=== PATIENT | male | born 1955 | race Caucasian/White ===

== ENCOUNTER 2020-09-18 19:56 | Emergency (ER) | payer MEDICARE | END 2020-09-18 22:07 | disposition left against medical advice (07) | LOC: ERS 19:56 | DX: Z53.21 Procedure and treatment not carried out due to patient leaving prior to being seen by health care provider (principal) ==

== ENCOUNTER 2021-12-02 18:25 | Emergency (ER) | payer OTHER | END 2021-12-02 20:44 | disposition home or self-care (01) | LOC: ERS 18:25 | DX: I82.611 Acute embolism and thrombosis of superficial veins of right upper extremity (principal); L03.113 Cellulitis of right upper limb; R19.7 Diarrhea, unspecified; I10 Essential (primary) hypertension; J44.9 Chronic obstructive pulmonary disease, unspecified; F17.210 Nicotine dependence, cigarettes, uncomplicated ==

== ENCOUNTER 2022-03-31 08:17 | Inpatient (IN) | payer MEDICARE, OTHER ==
[2022-03-31 08:50] LABS: Mean Corpuscular HGB CONC 32.6 g/dL (32.0-36.0); Mean Platelet Volume 7.5 fL (7.4-10.4); Platelet Count 227 thou/uL (130-400); RBC Distribution Width 11.8 % (11.5-14.5); Red Blood Cell (RBC) Count 5.16 mill/uL (4.70-6.10); White Blood Cell (WBC) Count 7.2 thou/uL (4.8-10.8)
[2022-03-31 08:59] LABS: INR-International Normal Ratio 0.9; PTT 25.3 sec (22.9-36.1); Prothrombin Time 12.1 sec (12.0-14.7)
[2022-03-31 09:05] LABS: ALT (SGPT) 18 U/L (8-55); AST (SGOT) 17 U/L (5-34); Albumin 4.6 g/dL (3.4-4.8); Alkaline Phosphatase 62 U/L (40-110); Anion Gap 16 mmol/L (10-20); BUN (Urea Nitrogen) 10 mg/dL (8.4-25.7); Bilirubin, Total 0.8 mg/dL (0.2-1.2); Calc. Creatinine Clearance 0 mL/min (70-130); Calcium 10.1 mg/dL (7.8-10.44); Carbon Dioxide 24 mmol/L (23-31); Chloride 102 mmol/L (98-107); Estimated GFR 92; Globulin 2.9 g/dL (2.4-3.5); Glucose 110 mg/dL (80-115); Potassium 4.1 mmol/L (3.5-5.1); Protein, Total 7.5 g/dL (5.8-8.1); Sodium 138 mmol/L (136-145)
[2022-03-31 09:16] LABS: Band 4 % (5-11); Eosinophils 1 % (0-10); Lymphocytes 26 % (21-51); MDiff Complete? YES; Monocytes 1 % (0-10); Neutrophil 65 % (42-75); Platelet Morphology Comment Appears Adequate; RBC Morphology Normal; Reactive Lymphocytes 3 % (0-10)
[2022-03-31 09:25] LABS: Bilirubin Negative (Negative); Blood, Urine Negative (Negative); Clarity Clear (Clear); Glucose, Urine (Dipstick) Normal (Negative); Ketone, Urine Negative (Negative); Leukocyte Negative Leu/uL (Negative); Nitrite Negative (Negative); Protein, Urine (Dipstick) Negative (Neg-Trace); Specific Gravity, Urine 1.012 (1.002-1.036); Urobilinogen Normal mg/dL (Less than 2)
[2022-03-31 09:33] LABS: Amphetamine Not Detected (NotDetected); Barbiturates Screen Not Detected (NotDetected); Benzodiazepine Screen Not Detected (NotDetected); Cocaine Metabolite Screen Not Detected (NotDetected); Methadone Not Detected (NotDetected); Methamphetamine Not Detected (NotDetected); Opiate Screen Detected (NotDetected); Oxycodone Screen Not Detected (NotDetected); Phencyclidine (PCP) Not Detected (NotDetected); THC/Cannabinoid Screen Not Detected (NotDetected); Tricyclic Screen Not Detected (NotDetected)
[2022-03-31] MEDS ORDERED: Aspirin Chewable 81 MG TAB ONE (11:02)
[2022-03-31] MEDS ORDERED: Ondansetron PF 4 MG/2 ML Vial IVP PRN (11:22)
[2022-03-31 12:01] LABS: INR-International Normal Ratio 0.9; Prothrombin Time 12.5 sec (12.0-14.7)
[2022-03-31] MEDS ORDERED: Enoxaparin Sodium 40 MG/0.4 ML SYRINGE SC SCH (12:30)
[2022-03-31] MEDS ORDERED: HYDROcodone/Acetaminophen 5/325 mg Tablet ONE (13:00)
[2022-03-31] MEDS ORDERED: Enoxaparin Sodium 40 MG/0.4 ML SYRINGE ONE (13:00)
[2022-03-31 13:19] LABS: SARS-CoV-2 NAA Rapid Test Not Detected (NotDetected)
[2022-03-31] MEDS ORDERED: Iopamidol 370 76% 50 ML VIAL FS ONE (13:53)
[2022-03-31] MEDS: Atorvastatin Calcium 40 MG TAB PO SCH (20:07)
[2022-04-01 07:17] LABS: Cardiac Risk 3.2 (Less than 4.5)
[2022-04-01] MEDS: Aspirin 81 mg Enteric Coated Tablet PO SCH ×2 (08:12→13:57)
[2022-04-01] MEDS ORDERED: Enoxaparin Sodium 40 MG/0.4 ML SYRINGE ONE (09:18)
[2022-04-01] MEDS: Enoxaparin Sodium 40 MG/0.4 ML SYRINGE SC SCH (09:22)
[2022-04-01] MEDS ORDERED: HYDROmorphone 0.5 MG/0.5 ML SYRINGE SLOW IVP SCH ×2 (10:30→15:15)
[2022-04-01] MEDS ORDERED: HYDROmorphone 0.5 MG/0.5 ML SYRINGE ONE (11:22)
[2022-04-01 13:02] VITALS: BMI 23.1
[2022-04-01] MEDS: Acetaminophen 325 MG TAB PO PRN ×2 (13:57→21:15)
[2022-04-01] MEDS ORDERED: Iopamidol 370 76% 50 ML VIAL FS ONE (14:24)
[2022-04-01] MEDS ORDERED: FLU VACC QS2022-23(65YR UP)/PF 240 MCG/0.7 ML SYRINGE IM ONE (14:45)
[2022-04-01] MEDS: Acetaminophen/Codeine 30-300mg Tablet PO PRN (17:14)
[2022-04-01] MEDS: Atorvastatin Calcium 40 MG TAB PO SCH (21:03)
[2022-04-02] MEDS: Acetaminophen/Codeine 30-300mg Tablet PO PRN ×4 (00:14→21:26)
[2022-04-02 05:34] LABS: Hemoglobin A1c 5.5 % (4.0-6.0)
[2022-04-02 05:49] LABS: Anion Gap 15 mmol/L (10-20); BUN (Urea Nitrogen) 13 mg/dL (8.4-25.7); Calc. Creatinine Clearance 92 mL/min (70-130); Calcium 9.3 mg/dL (7.8-10.44); Carbon Dioxide 23 mmol/L (23-31); Chloride 100 mmol/L (98-107); Cholesterol 177 mg/dl (< 200 Desired); Estimated GFR 96; Glucose 133 mg/dL (80-115); HDL Cholesterol 59 mg/dL (>60 Neg Risk); LDL Cholesterol, Calculated 104 mg/dL; Magnesium 1.7 mg/dL (1.6-2.6); Potassium 3.8 mmol/L (3.5-5.1); Sodium 134 mmol/L (136-145); Triglycerides 68 mg/dL (Less than 150)
[2022-04-02] MEDS: Aspirin 81 mg Enteric Coated Tablet PO SCH (08:49)
[2022-04-02] MEDS: Enoxaparin Sodium 40 MG/0.4 ML SYRINGE SC SCH (08:50)
[2022-04-02] MEDS: Acetaminophen 325 MG TAB PO PRN ×2 (12:46→20:02)
[2022-04-02] MEDS: Atorvastatin Calcium 40 MG TAB PO SCH (20:03)
[2022-04-03] MEDS: Acetaminophen/Codeine 30-300mg Tablet PO PRN ×2 (03:38→11:30)
[2022-04-03] MEDS: Aspirin 81 mg Enteric Coated Tablet PO SCH (08:29)
[2022-04-03] MEDS: Enoxaparin Sodium 40 MG/0.4 ML SYRINGE SC SCH (08:29)
[2022-04-03] MEDS: Acetaminophen 325 MG TAB PO PRN ×3 (15:41→23:17)
[2022-04-03] MEDS: HYDROcodone/Acetaminophen 10/325 mg Tablet PO PRN ×2 (17:23→21:12)
[2022-04-03] MEDS: Atorvastatin Calcium 40 MG TAB PO SCH (19:53)
[2022-04-04] MEDS: HYDROcodone/Acetaminophen 10/325 mg Tablet PO PRN ×5 (00:42→22:11)
[2022-04-04] MEDS: Acetaminophen 325 MG TAB PO PRN ×4 (02:46→20:00)
[2022-04-04] MEDS: Enoxaparin Sodium 40 MG/0.4 ML SYRINGE SC SCH (08:18)
[2022-04-04] MEDS: Aspirin 81 mg Enteric Coated Tablet PO SCH (08:18)
[2022-04-04] MEDS: Atorvastatin Calcium 40 MG TAB PO SCH (20:00)
[2022-04-05] MEDS: Acetaminophen 325 MG TAB PO PRN ×2 (00:13→08:10)
[2022-04-05] MEDS: HYDROcodone/Acetaminophen 10/325 mg Tablet PO PRN ×4 (06:58→20:00)
[2022-04-05] MEDS: Enoxaparin Sodium 40 MG/0.4 ML SYRINGE SC SCH (08:10)
[2022-04-05] MEDS: Aspirin 81 mg Enteric Coated Tablet PO SCH (08:11)
[2022-04-05] MEDS: AMOXicillin 250 MG CAP PO SCH ×2 (15:31→20:02)
[2022-04-05] MEDS: Atorvastatin Calcium 40 MG TAB PO SCH (20:00)
[2022-04-06] MEDS: HYDROcodone/Acetaminophen 10/325 mg Tablet PO PRN ×5 (00:59→20:23)
[2022-04-06] MEDS ORDERED: hydrALAZINE 20 MG/ML VIAL SLOW IVP SCH (01:30)
[2022-04-06] MEDS: Enoxaparin Sodium 40 MG/0.4 ML SYRINGE SC SCH (08:38)
[2022-04-06] MEDS: Aspirin 81 mg Enteric Coated Tablet PO SCH (08:38)
[2022-04-06] MEDS: AMOXicillin 250 MG CAP PO SCH ×3 (08:41→20:19)
[2022-04-06] MEDS: Acetaminophen 325 MG TAB PO PRN ×2 (08:44→15:27)
[2022-04-06] MEDS: Atorvastatin Calcium 40 MG TAB PO SCH (20:19)
[2022-04-06 20:29] VITALS: BP 151/97; TEMP 97.5
== END 2022-04-06 22:30 | DRG 64 ==
LOC: ERS 08:17 → ERHOLD 12:10 → NEURO 04-01 12:52
PROVIDERS: ADMIT Internal Medicine; ATTEND Internal Medicine
DX: I63.49 Cerebral infarction due to embolism of other cerebral artery (principal); K85.20 Alcohol induced acute pancreatitis without necrosis or infection; E87.1 Hypo-osmolality and hyponatremia; J44.9 Chronic obstructive pulmonary disease, unspecified; I10 Essential (primary) hypertension; F17.210 Nicotine dependence, cigarettes, uncomplicated; F10.20 Alcohol dependence, uncomplicated; G83.24 Monoplegia of upper limb affecting left nondominant side; K04.7 Periapical abscess without sinus; R91.8 Other nonspecific abnormal finding of lung field; R59.0 Localized enlarged lymph nodes; R10.30 Lower abdominal pain, unspecified; I65.23 Occlusion and stenosis of bilateral carotid arteries; Z20.822 Contact with and (suspected) exposure to COVID-19
CPT/HCPCS: 36415; 70450; 70498; 70551; 71260; 80048; 80053; 80061; 80306; 81003; 83036; 83735; 84484; 85025; 85610; 85730; 87811; 90471; 90662; 90732; 93005; 93306; 94640; G0008; G0009; J1170; J1650; J7620; Q9967; U0002

== ENCOUNTER 2022-07-24 16:09 | Emergency (ER) | payer OTHER ==
[2022-07-24] MEDS ORDERED: Acetaminophen 500 MG TAB ONE (17:05)
[2022-07-24] MEDS ORDERED: Ketorolac Tromethamine 30 MG/ML VIAL ONE (17:05)
[2022-07-24] MEDS ORDERED: HYDROcodone/Acetaminophen 10/325 mg Tablet ONE (17:14)
== END 2022-07-24 17:07 | disposition home or self-care (01) ==
LOC: ERS 16:09
DX: M54.2 Cervicalgia (principal); R20.0 Anesthesia of skin; I10 Essential (primary) hypertension; J44.9 Chronic obstructive pulmonary disease, unspecified; F17.210 Nicotine dependence, cigarettes, uncomplicated; Z79.899 Other long term (current) drug therapy
CPT/HCPCS: 93005; 96374; J1885

== ENCOUNTER 2022-12-23 12:40 | Outpatient (CLI) | payer OTHER, MEDICARE | END 2022-12-23 12:41 | disposition home or self-care (01) | PROVIDERS: ATTEND Psychiatry & Neurology Neurology | DX: I63.9 Cerebral infarction, unspecified (principal) | CPT/HCPCS: 93225; 93226 ==

== ENCOUNTER 2024-07-07 13:21 | Observation (INO) | payer OTHER ==
[2024-07-07 16:36] VITALS: BMI 23.7
[2024-07-07] MEDS ORDERED: Senokot S 8.6-50 MG TAB PO PRN (16:45)
[2024-07-07] MEDS ORDERED: Ondansetron ODT 4 MG TAB PO PRN (16:45)
[2024-07-07] MEDS ORDERED: Ondansetron PF 4 MG/2 ML Vial IVP PRN (16:45)
[2024-07-07] MEDS ORDERED: Dextrose 50% Abboject 50 ML SYRINGE SLOW IVP PRN (16:46)
[2024-07-07] MEDS ORDERED: Glucagon 1 MG/ML KIT IM PRN (16:46)
[2024-07-07] MEDS ORDERED: Dextrose 5% in Water 1,000 ML IV PRN (16:46)
[2024-07-07] MEDS ORDERED: hydrALAZINE 20 MG/ML VIAL SLOW IVP PRN (16:48)
[2024-07-07] MEDS ORDERED: Ibuprofen 200 MG TAB PO PRN (17:19)
[2024-07-07] MEDS: Insulin Lispro 100 UNIT/ML 10 ML VIAL SC PRN (18:21)
[2024-07-07] MEDS: Insulin Glargine 30 UNITS/0.3 ML VIAL SC SCH (20:20)
[2024-07-07] MEDS: Atorvastatin Calcium 40 MG TAB PO SCH (20:20)
[2024-07-07] MEDS: Gabapentin 300 MG CAP PO SCH (20:21)
[2024-07-08 03:56] LABS: #Basophils 0.03 10x3/uL (0.0-0.2); %Basophils 0.4 % (0.0-1.0); %Eosinophils 1.9 % (0.0-10.0); %Lymphocytes 30.4 % (21.0-51.0); %Monocytes 8.4 % (0.0-10.0); %Neutrophils 57.9 % (42.0-75.0); Hematocrit 35.7 % (42.0-52.0); Hemoglobin 11.9 g/dL (14.0-18.0); Mean Corpuscular HGB CONC 33.3 g/dL (32.0-36.0); Mean Corpuscular Hemoglobin 29.1 pg (27.0-31.0); Mean Corpuscular Volume 87.3 fL (78.0-98.0); Mean Platelet Volume 10.3 fL (7.4-10.4); Platelet Count 289 10x3/uL (130-400); RBC Distribution Width 11.9 % (11.5-14.5); Red Blood Cell (RBC) Count 4.09 mill/uL (4.70-6.10)
[2024-07-08 04:32] LABS: Anion Gap 12 mmol/L (10-20); BUN (Urea Nitrogen) 11 mg/dL (8.4-25.7); Calc. Creatinine Clearance 123 mL/min (70-130); Calcium 8.5 mg/dL (7.8-10.44); Carbon Dioxide 27 mmol/L (23-31); Cardiac Risk 3.3 (Less than 4.5); Chloride 102 mmol/L (98-107); Cholesterol 106 mg/dl (< 200 Desired); Estimated GFR 103; Glucose 194 mg/dL (80-115); HDL Cholesterol 32 mg/dL (>60 Neg Risk); LDL Cholesterol, Calculated 52 mg/dL; Potassium 3.2 mmol/L (3.5-5.1); Sodium 138 mmol/L (136-145); Triglycerides 108 mg/dL (Less than 150)
[2024-07-08] MEDS: Ipratropium/Albuterol 3 ML NEB NEB PRN (04:36)
[2024-07-08] MEDS: Apixaban 5 MG TAB PO SCH (09:13)
[2024-07-08] MEDS: Potassium Chloride 20 MEQ TAB PO SCH (09:13)
[2024-07-08] MEDS: Aspirin 81 mg Enteric Coated Tablet PO SCH (09:13)
[2024-07-08] MEDS: Lisinopril 10 MG TAB PO SCH (09:14)
[2024-07-08] MEDS: Folic Acid 1 MG TAB PO SCH (09:14)
[2024-07-08] MEDS: Loratadine 10 MG TAB PO SCH (09:15)
[2024-07-08] MEDS: Thiamine 100 MG TAB PO SCH (09:15)
[2024-07-08] MEDS: FLU (Fluad Triv) TS24-25 (65UP)/MF59C/PF 45 MCG/0.5 ML Syringe IM ONE (09:27)
[2024-07-08] MEDS: Acetaminophen 325 MG TAB PO PRN (12:02)
[2024-07-08] MEDS: Ketorolac Tromethamine 30 MG (1 mL) VIAL IVP PRN (15:41)
[2024-07-08] MEDS: Insulin Lispro 100 UNIT/ML 10 ML VIAL SC PRN (20:30)
[2024-07-09 04:25] LABS: #Basophils 0.03 10x3/uL (0.0-0.2); %Basophils 0.5 % (0.0-1.0); %Eosinophils 1.9 % (0.0-10.0); %Monocytes 9.9 % (0.0-10.0); %Neutrophils 59.4 % (42.0-75.0); Hematocrit 35.6 % (42.0-52.0); Mean Corpuscular HGB CONC 33.7 g/dL (32.0-36.0); Mean Corpuscular Hemoglobin 29.4 pg (27.0-31.0); Mean Corpuscular Volume 87.3 fL (78.0-98.0); Mean Platelet Volume 10.4 fL (7.4-10.4); Platelet Count 264 10x3/uL (130-400); RBC Distribution Width 11.9 % (11.5-14.5); Red Blood Cell (RBC) Count 4.08 mill/uL (4.70-6.10)
[2024-07-09 04:48] LABS: Anion Gap 11 mmol/L (10-20); BUN (Urea Nitrogen) 13 mg/dL (8.4-25.7); Calc. Creatinine Clearance 121 mL/min (70-130); Calcium 8.4 mg/dL (7.8-10.44); Carbon Dioxide 27 mmol/L (23-31); Chloride 101 mmol/L (98-107); Estimated GFR 103; Glucose 210 mg/dL (80-115); Potassium 3.4 mmol/L (3.5-5.1); Sodium 136 mmol/L (136-145)
[2024-07-09 08:06] VITALS: BP 173/95; TEMP 98.3
== END 2024-07-09 10:08 | disposition home or self-care (01) ==
LOC: 2SE 15:47 → EEVIPCON 15:47
PROVIDERS: ADMIT Internal Medicine; ATTEND Internal Medicine
PROC: B24BZZZ Ultrasonography of Heart with Aorta (ICD-10-PCS; principal; 2024-07-08)
DX: R53.1 Weakness (principal); R73.9 Hyperglycemia, unspecified; R73.03 Prediabetes; E87.6 Hypokalemia; I10 Essential (primary) hypertension; I16.0 Hypertensive urgency; J44.9 Chronic obstructive pulmonary disease, unspecified; F10.20 Alcohol dependence, uncomplicated; Z86.73 Personal history of transient ischemic attack (TIA), and cerebral infarction without residual deficits; Z87.891 Personal history of nicotine dependence; Z98.890 Other specified postprocedural states; Z79.01 Long term (current) use of anticoagulants; Z79.1 Long term (current) use of non-steroidal anti-inflammatories (NSAID); Z79.899 Other long term (current) drug therapy; Y90.9 Presence of alcohol in blood, level not specified
CPT/HCPCS: 36415; 36416; 70551; 80048; 80061; 85025; 90653; 93306; 93880; 94640; 96374; G0378; J1815; J1885; J7620

== ENCOUNTER 2024-07-27 14:48 | Emergency (ER) | payer OTHER ==
[~2024-07-27 14:48] MED LIST: Iopamidol 370 76% 100 ML VIAL ONE
== END 2024-07-27 20:12 ==
LOC: ERS 14:48
DX: R59.0 Localized enlarged lymph nodes (principal); J39.2 Other diseases of pharynx; F17.210 Nicotine dependence, cigarettes, uncomplicated
CPT/HCPCS: 70491

== ENCOUNTER 2025-01-07 13:39 | Emergency (ER) | payer MEDICARE ==
[~2025-01-07 13:39] MED LIST changes: -Iopamidol 370 76% 100 ML VIAL ONE; +Iopamidol-370 76% 500 ML MDV (1 ML CHARGE) ONE
[2025-01-07 14:30] LABS: #Basophils 0.04 10x3/uL (0.0-0.2); #Eosinophils 0.33 10x3/uL (0.0-0.7); #Monocytes 0.44 10x3/uL (0.11-0.59); #Neutrophils 2.32 10x3/uL (1.40-6.50); %Basophils 0.8 % (0.0-1.0); %Eosinophils 6.6 % (0.0-10.0); %Lymphocytes 36.6 % (21.0-51.0); %Monocytes 8.9 % (0.0-10.0); %Neutrophils 46.7 % (42.0-75.0); Hematocrit 34.2 % (42.0-52.0); Hemoglobin 11.0 g/dL (14.0-18.0); Mean Corpuscular Hemoglobin 30.1 pg (27.0-31.0); Mean Corpuscular Volume 93.4 fL (78.0-98.0); Platelet Count 283 10x3/uL (130-400); Red Blood Cell (RBC) Count 3.66 mill/uL (4.70-6.10); White Blood Cell (WBC) Count 4.97 10x3/uL (4.8-10.8)
[2025-01-07 14:47] LABS: ALT (SGPT) 12 U/L (Less than 45); AST (SGOT) 17 U/L (11-34); Albumin 3.3 g/dL (3.1-4.5); Alkaline Phosphatase 69 U/L (40-110); Anion Gap 14 mmol/L (10-20); BUN (Urea Nitrogen) 20 mg/dL (8.4-25.7); Bilirubin, Total 0.3 mg/dL (0.3-1.2); Calc. Creatinine Clearance 0 mL/min (70-130); Calcium 9.3 mg/dL (7.8-10.44); Carbon Dioxide 26 mmol/L (23-31); Chloride 105 mmol/L (98-107); Globulin 3.6 g/dL (2.4-3.5); Glucose 185 mg/dL (80-115); Lipase 31 U/L (8-78); Potassium 4.3 mmol/L (3.5-5.1); Sodium 141 mmol/L (136-145)
[2025-01-07 14:52] LABS: Glucose, Urine (Dipstick) 250 mg/dL (Negative); Leukocyte Negative (Negative); Protein, Urine (Dipstick) 30 mg/dL (Neg-Trace); Specific Gravity, Urine Greater/Equal 1.030 (1.005-1.030)
[2025-01-07 14:54] LABS: Bacteria/HPF Rare-Few HPF (None Seen); CAUTI Indications for Culture Dysuria,urgency,freq; RBC/HPF None Seen HPF (0-3); WBC/HPF 0-3 HPF (0-3)
[2025-01-07 14:55] LABS: Urine Culture Reflex No No
[2025-01-07 15:11] LABS: Troponin I Less than 0.010 ng/mL (< 0.028)
[2025-01-07 18:46] LABS: Troponin I Less than 0.010 ng/mL (< 0.028)
== END 2025-01-07 18:47 | disposition home or self-care (01) ==
LOC: ERS 13:39
DX: R53.1 Weakness (principal); R62.7 Adult failure to thrive; J44.9 Chronic obstructive pulmonary disease, unspecified; I10 Essential (primary) hypertension; E11.9 Type 2 diabetes mellitus without complications; Z87.891 Personal history of nicotine dependence; Z86.73 Personal history of transient ischemic attack (TIA), and cerebral infarction without residual deficits; Z79.4 Long term (current) use of insulin
CPT/HCPCS: 70450; 71275; 74177; 80053; 81001; 82962; 83605; 83690; 84484 ×2; 85025; 87040; Q9967; 36415; 36416

== ENCOUNTER 2025-03-01 09:44 | Inpatient (IN) | payer MEDICARE ==
[2025-03-01] MEDS ORDERED: Melatonin 3 MG TAB PO PRN (13:22)
[2025-03-01] MEDS ORDERED: Diltiazem HCl/D5W 125 MG in Premix 1 BAG IVPB SCH (14:45)
[2025-03-01] MEDS: Digoxin 0.5 MG/2 ML AMP SLOW IVP SCH (14:59)
[2025-03-01] MEDS: Apixaban 5 MG TAB PO SCH (20:06)
[2025-03-01] MEDS: Amiodarone 150 MG, Admixture Fee 1 EACH in Dextrose 5% in Water 100 ML IVPB SCH (22:02)
[2025-03-02] MEDS: HYDROcodone/Acetaminophen 10/325 mg Tablet PO PRN (00:52)
[2025-03-02] MEDS: Ondansetron PF 4 MG/2 ML Vial IVP PRN (03:12)
[2025-03-02] MEDS: Ketorolac Tromethamine 30 MG (1 mL) VIAL IVP SCH (03:26)
[2025-03-02 04:50] LABS: Hematocrit 31.7 % (42.0-52.0); Hemoglobin 10.5 g/dL (14.0-18.0); Mean Corpuscular Hemoglobin 29.1 pg (27.0-31.0); Mean Corpuscular Volume 87.8 fL (78.0-98.0); Platelet Count 176 10x3/uL (130-400); Red Blood Cell (RBC) Count 3.61 mill/uL (4.70-6.10); White Blood Cell (WBC) Count 6.49 10x3/uL (4.8-10.8)
[2025-03-02] MEDS ORDERED: Glucagon 1 MG/ML KIT IM PRN (04:55)
[2025-03-02] MEDS ORDERED: Dextrose 50% Abboject 50 ML SYRINGE SLOW IVP PRN (04:55)
[2025-03-02 05:06] LABS: Anion Gap 13 mmol/L (10-20); BUN (Urea Nitrogen) 14 mg/dL (8.4-25.7); Calc. Creatinine Clearance 116 mL/min (70-130); Calcium 7.9 mg/dL (7.8-10.44); Carbon Dioxide 25 mmol/L (23-31); Chloride 100 mmol/L (98-107); Glucose 236 mg/dL (83-110); Potassium 3.5 mmol/L (3.5-5.1); Sodium 134 mmol/L (136-145)
[2025-03-02 05:27] LABS: Platelet Adequacy Comment Platelets Normal; RBC Morphology Within Normal Limits; Smudge Cells 4.0 %
[2025-03-02] MEDS: Diltiazem HCl/D5W 125 MG in Premix 1 BAG IVPB SCH (17:53)
[2025-03-02] MEDS: Acetaminophen 325 MG TAB PO PRN (19:39)
[2025-03-03 09:27] LABS: Hematocrit 31.5 % (42.0-52.0); Hemoglobin 10.3 g/dL (14.0-18.0); Mean Corpuscular Hemoglobin 29.2 pg (27.0-31.0); Mean Corpuscular Volume 89.2 fL (78.0-98.0); Platelet Count 202 10x3/uL (130-400); Red Blood Cell (RBC) Count 3.53 mill/uL (4.70-6.10); White Blood Cell (WBC) Count 8.87 10x3/uL (4.8-10.8)
[2025-03-03 09:54] LABS: ALT (SGPT) Less than 7 U/L (Less than 45); AST (SGOT) 9 U/L (11-34); Albumin 2.0 g/dL (3.1-4.5); Alkaline Phosphatase 70 U/L (40-110); Anion Gap 12 mmol/L (10-20); BUN (Urea Nitrogen) 14 mg/dL (8.4-25.7); Bilirubin, Total 0.2 mg/dL (0.3-1.2); Calc. Creatinine Clearance 129 mL/min (70-130); Calcium 7.6 mg/dL (7.8-10.44); Carbon Dioxide 27 mmol/L (23-31); Chloride 97 mmol/L (98-107); Globulin 2.6 g/dL (2.4-3.5); Glucose 180 mg/dL (83-110); Potassium 3.1 mmol/L (3.5-5.1); Sodium 133 mmol/L (136-145)
[2025-03-03 09:57] LABS: Anisocytosis SLIGHT = 6-15 cells HPF (0-5); Ovalocytes SLIGHT = 2-5 cells HPF (0-1); Platelet Adequacy Comment Platelets Normal; Polychromasia SLIGHT = 2-3 cells HPF (0-2)
[2025-03-03] MEDS: dilTIAZem 30 MG TAB PO SCH (10:25)
[2025-03-03] MEDS: HYDROcodone/Acetaminophen 5/325 mg Tablet PO PRN (22:26)
[2025-03-04 04:53] LABS: Hematocrit 31.3 % (42.0-52.0); Hemoglobin 10.3 g/dL (14.0-18.0); Mean Corpuscular Hemoglobin 28.9 pg (27.0-31.0); Mean Corpuscular Volume 87.9 fL (78.0-98.0); Platelet Count 209 10x3/uL (130-400); Red Blood Cell (RBC) Count 3.56 mill/uL (4.70-6.10); White Blood Cell (WBC) Count 7.80 10x3/uL (4.8-10.8)
[2025-03-04 05:11] LABS: Anion Gap 17 mmol/L (10-20); BUN (Urea Nitrogen) 12 mg/dL (8.4-25.7); Calc. Creatinine Clearance 142 mL/min (70-130); Calcium 7.5 mg/dL (7.8-10.44); Carbon Dioxide 25 mmol/L (23-31); Chloride 97 mmol/L (98-107); Glucose 196 mg/dL (83-110); Potassium 3.1 mmol/L (3.5-5.1); Sodium 136 mmol/L (136-145)
[2025-03-04 05:47] LABS: Platelet Adequacy Comment Platelets Normal; RBC Morphology Within Normal Limits; Smudge Cells 10.0 %
[2025-03-04] MEDS: Ketorolac Tromethamine 30 MG (1 mL) VIAL ONE (10:40)
[2025-03-04] MEDS: Phenol 177 ML BOT PO SCH (10:48)
[2025-03-04] MEDS: Benzocaine/Menthol 1 LOZ LOZ PO SCH (10:48)
[2025-03-04] MEDS ORDERED: Sincalide 5 MCG VIAL ONE (12:07)
[2025-03-04] MEDS ORDERED: Bacteriostatic Normal Saline 30 ML VIAL ONE (12:10)
[2025-03-04] MEDS: Benzocaine/Menthol 1 LOZ LOZ PO PRN (16:18)
[2025-03-04] MEDS: Phenol 177 ML BOT PO PRN (16:18)
[2025-03-04 16:44] VITALS: BMI 22.6
[2025-03-04] MEDS: PNEUMOC 20-VAL CONJ-DIP CRM/PF 0.5 ML SYRINGE IM ONE (20:27)
[2025-03-05 04:51] LABS: Hematocrit 31.3 % (42.0-52.0); Hemoglobin 9.8 g/dL (14.0-18.0); Mean Corpuscular Hemoglobin 28.3 pg (27.0-31.0); Mean Corpuscular Volume 90.5 fL (78.0-98.0); Platelet Count 245 10x3/uL (130-400); Red Blood Cell (RBC) Count 3.46 mill/uL (4.70-6.10); White Blood Cell (WBC) Count 14.64 10x3/uL (4.8-10.8)
[2025-03-05 05:06] LABS: Anion Gap 21 mmol/L (10-20); BUN (Urea Nitrogen) 6 mg/dL (8.4-25.7); Calc. Creatinine Clearance 121 mL/min (70-130); Calcium 7.6 mg/dL (7.8-10.44); Carbon Dioxide 20 mmol/L (23-31); Chloride 99 mmol/L (98-107); Glucose 322 mg/dL (83-110); Potassium 3.6 mmol/L (3.5-5.1); Sodium 136 mmol/L (136-145)
[2025-03-05 05:26] LABS: Platelet Adequacy Comment Platelets Normal; Polychromasia SLIGHT = 2-3 cells HPF (0-2)
[2025-03-05] MEDS: dilTIAZem 30 MG TAB PO SCH (09:16)
[2025-03-05] MEDS: Pantoprazole 40 MG VIAL IVP SCH (11:43)
[2025-03-05] MEDS ORDERED: Iopamidol 370 76% 100 ML VIAL ONE (13:02)
[2025-03-06 08:03] LABS: CAUTI Indications for Culture Fever or rigors; Glucose, Urine (Dipstick) Greater than 1000 mg/dL (Negative); Leukocyte Negative Leu/uL (Negative); Protein, Urine (Dipstick) Negative (Neg-Trace); RBC/HPF None Seen HPF (0-3); Specific Gravity, Urine 1.016 (1.002-1.036); WBC/HPF 0-3 HPF (0-3); Yeast-Budding 3+ HPF (None Seen)
[2025-03-06 08:14] LABS: Bacteria/HPF Rare-Few HPF (None Seen); Yeast-Hyphae 1+ HPF (None Seen)
[2025-03-06 08:15] LABS: Urine Culture Reflex No No
[2025-03-06] MEDS: Pantoprazole 40 MG VIAL IVP SCH (08:20)
[2025-03-06] MEDS: Dexamethasone 4 MG TAB PO SCH (20:12)
[2025-03-06] MEDS: Insulin Glargine 30 UNITS/0.3 ML VIAL SC SCH (20:13)
[2025-03-06] MEDS: Ketorolac Tromethamine 30 MG (1 mL) VIAL IVP SCH (20:16)
[2025-03-07 05:03] LABS: Hematocrit 31.0 % (42.0-52.0); Hemoglobin 10.3 g/dL (14.0-18.0); Mean Corpuscular Hemoglobin 28.5 pg (27.0-31.0); Mean Corpuscular Volume 85.9 fL (78.0-98.0); Platelet Count 270 10x3/uL (130-400); Red Blood Cell (RBC) Count 3.61 mill/uL (4.70-6.10); White Blood Cell (WBC) Count 10.88 10x3/uL (4.8-10.8)
[2025-03-07 05:14] LABS: Anion Gap 15 mmol/L (10-20); BUN (Urea Nitrogen) Less than 4 mg/dL (8.4-25.7); Calc. Creatinine Clearance 128 mL/min (70-130); Calcium 7.8 mg/dL (7.8-10.44); Carbon Dioxide 30 mmol/L (23-31); Chloride 95 mmol/L (98-107); Glucose 238 mg/dL (83-110); Potassium 3.4 mmol/L (3.5-5.1); Sodium 137 mmol/L (136-145)
[2025-03-07 05:49] LABS: Anisocytosis SLIGHT = 6-15 cells HPF (0-5); Platelet Adequacy Comment Platelets Normal; Polychromasia SLIGHT = 2-3 cells HPF (0-2)
[2025-03-07 16:20] VITALS: BP 146/78; TEMP 97.8
== END 2025-03-07 18:23 | DRG 309 ==
LOC: 2NO 12:04 → OBSVTOIN 03-02 11:09
PROVIDERS: ADMIT Internal Medicine; ATTEND Internal Medicine
PROC: 3E03329 Introduction of Other Anti-infective into Peripheral Vein, Percutaneous Approach (ICD-10-PCS; principal; 2025-03-02)
PROC: 0DH67UZ Insertion of Feeding Device into Stomach, Via Natural or Artificial Opening (ICD-10-PCS; 2025-03-02)
PROC: 3E0G76Z Introduction of Nutritional Substance into Upper GI, Via Natural or Artificial Opening (ICD-10-PCS; 2025-03-02)
DX: I48.0 Paroxysmal atrial fibrillation (principal); I13.0 Hypertensive heart and chronic kidney disease with heart failure and stage 1 through stage 4 chronic kidney disease, or unspecified chronic kidney disease; I50.32 Chronic diastolic (congestive) heart failure; E11.9 Type 2 diabetes mellitus without complications; Z66 Do not resuscitate; M06.89 Other specified rheumatoid arthritis, multiple sites; R13.10 Dysphagia, unspecified; R91.8 Other nonspecific abnormal finding of lung field; I89.0 Lymphedema, not elsewhere classified; N18.2 Chronic kidney disease, stage 2 (mild); R50.9 Fever, unspecified; D49.89 Neoplasm of unspecified behavior of other specified sites; Z79.01 Long term (current) use of anticoagulants; Z86.73 Personal history of transient ischemic attack (TIA), and cerebral infarction without residual deficits; Z79.899 Other long term (current) drug therapy; Z87.891 Personal history of nicotine dependence
CPT/HCPCS: 36415; 36416; 70450; 70491; 71260; 76700; 78226; 80048; 80053; 81001; 84145; 85025; 87040; 87324; 87449; 96374; 96375; 96376; A9537; G0378; J0282; J0295; J0692; J1160; J1815; J1885; J2270; J2405; J2470; J2805; J7030; J7070; J8540; Q9967